=== PATIENT | female | born 1995 | race Caucasian/White ===

== ENCOUNTER → 2017-12-30 | Outpatient (REF) ==
[~2017-12-30] MED LIST: ESCI10TA8 PO
[2017-12-30 09:12] LABS: LDL CHOLESTEROL 75 mg/dl
== END ==
DX: Z02.9 Encounter for administrative examinations, unspecified (principal)

== ENCOUNTER → 2018-01-08 | Outpatient (CLI) | payer OTHER ==
--- NOTE | 2018-01-08 09:49 | RADIOLOGY IMAGING REPORT ---
FACILITY: [facility] PATIENT NAME: Aurora Wayne : 1995 MR: [id number] V: [id number] EXAM DATE: ORDERING PHYSICIAN: FISH GALINDO TECHNOLOGIST: Location: [facility] [place] Patient: Aurora Wayne : 1995 Visit/Account:[id number] Date of Sevice: 01/08/2018 LUMBAR SPINE 2 OR 3 VIEW HISTORY: back pain COMPARISON: None. FINDINGS: Two views lumbar spine are submitted. There are five lumbar type vertebra with anatomic alignment. No fracture or destructive osseous process. Intervertebral disc spaces and vertebral body heights ar e maintained. Facets appear unremarkable. IMPRESSION: Unremarkable appearance lumbar spine Report Dictated By: Kj Choudhary MD at 01/08/2018 9:44 AM Report E-Signed By: Kj Choudhary MD at 01/08/2018 9:45 AM WSN:[id number]
== END ==
LOC: LAB 08:44
PROVIDERS: ATTEND Internal Medicine
DX: R10.9 Unspecified abdominal pain (principal); M54.5 Low back pain
CPT/HCPCS: 36415; 72100; 83516

== ENCOUNTER 2018-08-11 13:05 | Outpatient (RCR) | payer OTHER ==
[~2018-08-11] VITALS: Ht 172.7 cm; Wt 59.9 kg
[~2018-08-11 13:05] MED LIST changes: +METF-450 PO; +MULT1CAP59 PO
--- NOTE | 2018-08-11 16:58 | Medical Nutrition Therapy ---
Nutrition Anthropometrics Height (Inches): 68 (stated) Weight (Pounds): 132 (Standing scale) BMI: 20.1 Esteban Nutrition Score: Esteban Nutrition Risk Score: Dietary Referral Nutrition Risk Factors: Nutrition Risk Comment: Nutrition/Food History Breakfast: now:eggs, sausage- was eating burritos or cereal Lunch: Now met veg- was pasta, sand or chicken fingers Dinner: now meat ,veg- was meat, starch Snacks: now nuts cheese was chips, fruit, crackers Nutritional Education Nutrition Education Topic: Other (PCOS- preDM) Learning Readiness: Interested Teaching Methods: Discussion, Handout, Demonstration Response to Teaching: Verbalize understanding Teaching Recipient: Patient Nutrition Counseling: Discussed diet options of lower CHO, Mediterranian diet. Provided copy of Mediterranian and lower CHO of 90gm diet divid into 3 meals with healty meats and fats. Reviewed glycemic index and encouraged lower GI foods. Stress lifestyle changes rather than diet as pt's wt is within desired range. Nutrition Monitoring & Eval RD Patient Assessment Time: 30 minutes Nutritional Comment: Provided 40 min MNT for dx PCOS Copies To Copies to: ABEL KRUEGER MD ; KAREN ZEPEDA Aug 11, 2018 16:58
== END 2018-09-15 ==
LOC: DIET 13:05
PROVIDERS: ATTEND Obstetrics & Gynecology
DX: Z71.3 Dietary counseling and surveillance (principal); E28.2 Polycystic ovarian syndrome; Z68.20 Body mass index [BMI] 20.0-20.9, adult
CPT/HCPCS: 97802